=== PATIENT | male | born 1960 | race African-American/Black ===

== ENCOUNTER 2017-04-05 11:41 | Emergency (ER) | payer BC, OTHER ==
[2017-04-05 11:49] VITALS: BP 136/82; PULSE 68; TEMP 97.9; BMI 27.1
--- NOTE | 2017-04-05 12:00 | PDOC ---
History of Present Illness - General Chief Complaint: Pain Stated Complaint: BODYACHES Time Seen by Provider: 04/05/17 11:59 History Source: Patient Exam Limitations: No Limitations - History of Present Illness Initial Comments: 04/05/17 12:06 Pt is a 56 y/o male who presents with cough and urethral burning for two weeks. Pt. states his girlfriend was recently ill as well. Admits to cough, fatigue, urethral irritation. Admits to new sexual partners. Pt. is requesting HIV testing at this time. Denies fevers, chills, nausea, vomiting, diarrhea, frequency, urgency, dysuria, penile discharge. Timing/Duration: 1 week, constant Past History - Travel Traveled outside of the country in the last 30 days: No Close contact w/someone who was outside of country & ill: No - Past Medical History Allergies/Adverse Reactions: Allergies Allergy/AdvReac Type Severity Reaction Status Date / Time No Known Allergies Allergy Verified 04/05/17 12:14 Home Medications: Ambulatory Orders NK [No Known Home Medication] 04/05/17 Cardiac Disorders: Yes - Surgical History Cardiac Surgery: Yes (STENT LAD) - Family Disease History Family Disease History: Heart Disease: Father - Immunization History Immunization Up to Date: Yes - Psycho/Social/Smoking Cessation Hx Anxiety: No Suicidal Ideation: No Smoking History: Current every day smoker Have you smoked in the past 12 months: No Number of Cigarettes Smoked Daily: 3 Information on smoking cessation initiated: Yes 'Breaking Loose' booklet given: 04/05/17 Hx Alcohol Use: No Drug/Substance Use Hx: No Substance Use Type: None Hx Substance Use Treatment: No Review of Systems - Review of Systems Able to Perform ROS?: Yes Is the patient limited Ukrainian proficient: No Constitutional: Yes: Malaise. No: Chills, Fever HEENTM: No: Recent change in vision, Nose Congestion, Throat Pain Respiratory: Yes: Cough. No: Shortness of Breath : Yes: Symptoms Reported, Burning. No: Dysuria, Discharge, Frequency, Incontinence, Pain, Testicular Swelling *Physical Exam - Vital Signs Last Vital Signs Temp Pulse Resp BP Pulse Ox 97.9 F 68 18 136/82 99 04/05/17 11:48 04/05/17 11:48 04/05/17 11:48 04/05/17 11:48 04/05/17 11:48 - Physical Exam General Appearance: Yes: Nourished, Appropriately Dressed. No: Apparent Distress HEENT: positive: EOMI, JOSE, Normal ENT Inspection, Normal Voice, TMs Normal Neck: positive: Trachea midline, Supple. negative: Tender, Rigid, Lymphadenopathy (R), Lymphadenopathy (L) Respiratory/Chest: positive: Lungs Clear, Normal Breath Sounds. negative: Respiratory Distress, Accessory Muscle Use, Rhonchi, Stridor, Wheezing Cardiovascular: positive: Regular Rhythm, Regular Rate, S1, S2 (present) Gastrointestinal/Abdominal: positive: Normal Bowel Sounds, Flat, Soft. negative : Tender, Organomegaly Male Genitalia: positive: normal genitalia. negative: discharge, testicular tenderness, hematuria Integumentary: positive: Normal Color, Dry, Warm Neurologic: positive: bellows tester II-XII NML intact, Fully Oriented, Alert, Normal Mood/ Affect, Normal Response, Motor Strength 03/26 Medical Decision Making - Medical Decision Making 04/05/17 12:24 Impression: Possible viral syndrome, possible gonorrhea/chlamydia. Given symptoms will draw labs for all STD's and will treat prophylactically for chlamydia/gonorrhea. Pt. made aware that he needs to call for his results in three days. HIV testing drawn. Pt. will wait for results. 04/05/17 13:54 HIV testing is negative. Will discharge home at this time. Pt. may take over the counter cold medicine for his cough. *DC/Admit/Observation/Transfer Diagnosis at time of Disposition: Urethral pain Upper respiratory infection Qualifiers: URI type: unspecified URI Qualified Code(s): J06.9 - Acute upper respiratory infection, unspecified - Discharge Dispostion Disposition: HOME Condition at time of disposition: Stable Admit: No - Referrals Referrals: Carloz Gale MD [Primary Care Provider] - - Patient Instructions Printed Discharge Instructions: DI for Gonorrhea, DI for Chlamydia, DI for Viral Upper Respiratory Infection -- Adult Additional Instructions: Your HIV testing was negative today. You were also prophylactically treated for gonorrhea and chlamydia and do not need further treatment at this time. You may call back in three days for your results. You have symptoms of an upper respiratory infection. You may take Ibuprofen for your symptoms, up to 3,000 mgs a day. Take 600mg 4 times a day. You may also take over the counter cough medication for your symptoms. Stay hydrated and get plenty of rest. Return to the ED if you have chest pain, shortness of breathing, changes in your symptoms, or if your symptoms get worse.
[2017-04-05] MEDS ORDERED: IBUPROFEN 600 MG TABLET (FP) PO ONE ×2 (12:31→13:00)
[2017-04-05 12:51] LABS: URINE APPEARANCE CLEAR; URINE BILIRUBIN NEGATIVE (NEGATIVE); URINE BLOOD NEGATIVE (NEGATIVE); URINE COLOR STRAW; URINE GLUCOSE (UA) NEGATIVE (NEGATIVE); URINE KETONE NEGATIVE (NEGATIVE); URINE LEUK ESTERASE NEGATIVE (NEGATIVE); URINE NITRITE NEGATIVE (NEGATIVE); URINE PROTEIN NEGATIVE (NEGATIVE); URINE UROBILINOGEN NEGATIVE E.U./dl (0.2-1.0)
[2017-04-05] MEDS ORDERED: AZITHROMYCIN 1 GM PACKET PO ONE (12:52)
[2017-04-05] MEDS ORDERED: LIDOCAINE HCL 1%, 10 MG/ML (20ML VIAL) ONE (13:00)
[2017-04-05] MEDS ORDERED: AZITHROMYCIN 1 GM PACKET ONE (13:00)
[2017-04-05 13:24] LABS: HIV 1 & 2 AB NEGATIVE; HIV 1 AGp24 NEGATIVE
== END 2017-04-05 14:31 | disposition home or self-care (01) ==
LOC: JERFT 11:41
DX: N36.8 Other specified disorders of urethra (principal); J06.9 Acute upper respiratory infection, unspecified
CPT/HCPCS: 36415; 81003; 86593; 87389; 87491; 87591; 99281-25

== ENCOUNTER 2021-12-07 14:15 | Emergency (ER) | payer BC, OTHER ==
[2021-12-07 14:19] VITALS: BP 144/90; TEMP 98.2; BMI 29.1
[2021-12-07] MEDS ORDERED: ACETAMINOPHEN 500 MG TABLET (FP) PO ONE (16:57)
[2021-12-07] MEDS ORDERED: SODIUM CHLORIDE 0.9% 500 ML INFUS.BAG IV ONE (16:57)
[2021-12-07 17:01] LABS: BASO % 0.7 % (0-2.0); EOS % 0.2 % (0-4.5); HEMATOCRIT 52.7 % (35.4-49); HEMOGLOBIN 17.7 GM/dL (11.7-16.9); LYMPH % 23.3 % (8-40); MCHC 33.6 g/dl (32.0-35.9); MEAN CELL VOLUME 80.2 fl (80-96); MEAN PLT VOLUME 7.9 fl (7.5-11.1); MONO % 13.4 % (3.8-10.2); NEUT % 62.4 % (42.8-82.8); PLATELET COUNT 218 10^3/uL (134-434); RBC 6.57 M/mm3 (4.00-5.60); RDW 15.7 % (11.9-15.9); WHITE BLOOD COUNT 3.8 K/mm3 (4.0-10.0)
[2021-12-07 17:22] LABS: ALBUMIN 3.8 g/dl (3.4-5.0); BLOOD UREA NITROGEN 16.5 mg/dL (7-18)
[2021-12-07 17:25] LABS: CREATININE 0.9 mg/dL (0.55-1.3)
[2021-12-07 17:27] LABS: BILIRUBIN,TOTAL 0.5 mg/dL (0.2-1); TOT PROT 7.3 g/dl (6.4-8.2)
[2021-12-07 18:27] VITALS: PULSE 90
[2021-12-08] MEDS ORDERED: AZITHROMYCIN 500 MG TABLET PO ONE (17:24)
== END 2021-12-07 18:27 | disposition home or self-care (01) ==
LOC: JER 14:15
DX: U07.1 COVID-19 (principal)
CPT/HCPCS: 36415; 71046-TC-FY; 80053; 85025; 99284-25

== ENCOUNTER 2021-12-12 00:45 | Inpatient (IN) | payer OTHER ==
[2021-12-12 00:59] VITALS: BMI 29.1
[2021-12-12 02:14] LABS: ACTIVATED PTT 19.2 SECONDS (25.2-36.5); CALCIUM 8.6 mg/dL (8.5-10.1); CHLORIDE 106 mmol/L (98-107); INR 0.93 (0.83-1.09); PROTHROMBIN TIME (PATIENT) 10.7 SEC (9.7-13.0); SODIUM 138 mmol/L (136-145)
[2021-12-12 02:15] LABS: ALBUMIN 3.2 g/dl (3.4-5.0); ANION GAP 9 MMOL/L (8-16); BLOOD UREA NITROGEN 14.5 mg/dL (7-18); CO2 23 mmol/L (21-32); GLUCOSE,RANDOM 134 mg/dL (74-106); MAGNESIUM 2.5 mg/dL (1.8-2.4)
[2021-12-12 02:18] LABS: CREATININE 0.9 mg/dL (0.55-1.3); SGOT/AST 69 U/L (15-37); SGPT/ALT 68 U/L (13-61)
[2021-12-12 02:19] LABS: BILIRUBIN,TOTAL 0.5 mg/dL (0.2-1)
[2021-12-12 02:20] LABS: TOT PROT 6.6 g/dl (6.4-8.2)
[2021-12-12 02:21] LABS: ALK PHOS 77 U/L (45-117)
[2021-12-12 02:24] LABS: N-TERMINAL BNP 97.5 pg/ml (5-125)
[2021-12-12 02:44] LABS: BASO % 0.3 % (0-2.0); HEMATOCRIT 44.3 % (35.4-49); LYMPH % 11.4 % (8-40); MCH 27.1 pg (25.7-33.7); MCHC 33.9 g/dl (32.0-35.9); MEAN CELL VOLUME 80.1 fl (80-96); MEAN PLT VOLUME 7.1 fl (7.5-11.1); MONO % 14.4 % (3.8-10.2); NEUT % 73.9 % (42.8-82.8); PLATELET COUNT 359 10^3/uL (134-434); RBC 5.53 M/mm3 (4.00-5.60); RDW 15.3 % (11.9-15.9)
[2021-12-12 03:22] LABS: LDH 453 U/L (87-246)
[2021-12-12 03:45] LABS: VENOUS BASE EXCESS -2.2 mmol/L (-2-2); VENOUS PCO2 30.8 mmHg (38-52); VENOUS PH 7.444 (7.310-7.410)
[2021-12-12] MEDS ORDERED: SODIUM CHLORIDE 1,000 ML IV SCH ×2 (06:30→12:54)
[2021-12-12 08:45] LABS: CHOLESTEROL 174 mg/dL (50-200); TRIGLYCERIDES 139 mg/dL (0-150)
[2021-12-12 08:46] LABS: LDL CHOLESTEROL (ONLY SJRH) 109 mg/dL (5-100)
[2021-12-12 08:47] LABS: HDL CHOLESTEROL 36 mg/dL (40-60)
[2021-12-12] MEDS ORDERED: ENOXAPARIN NA (PORCINE) 40 MG/0.4 ML DISP.SYRIN SQ SCH (10:00)
[2021-12-12] MEDS ORDERED: DEXAMETHASONE SOD PHOSPHATE 10 MG/1 ML VIAL IVPUSH SCH (10:00)
[2021-12-12] MEDS ORDERED: DEXAMETHASONE SOD PHOSPHATE 10 MG/1 ML VIAL ONE (11:25)
[2021-12-12] MEDS ORDERED: HEPARIN NA (PORCINE) 5,000 UNITS/ML 1ML VIAL ONE ×3 (11:25→20:59)
[2021-12-12 11:51] LABS: CHLORIDE 107 mmol/L (98-107); SODIUM 138 mmol/L (136-145)
[2021-12-12] MEDS: HEPARIN NA (PORCINE) 5,000 UNITS/ML 1ML VIAL SQ SCH ×3 (11:51→21:01)
[2021-12-12 11:52] LABS: ANION GAP 8 MMOL/L (8-16); CO2 23 mmol/L (21-32)
[2021-12-12 11:53] LABS: BLOOD UREA NITROGEN 14.6 mg/dL (7-18); GLUCOSE,RANDOM 135 mg/dL (74-106)
[2021-12-12 11:56] LABS: CREATININE 0.9 mg/dL (0.55-1.3)
[2021-12-12 11:56] LABS: PH,URINE 6.5 (5.0-8.0); URINE APPEARANCE CLEAR; URINE BILIRUBIN NEGATIVE (NEGATIVE); URINE COLOR YELLOW; URINE GLUCOSE (UA) NEGATIVE (NEGATIVE); URINE KETONE NEGATIVE (NEGATIVE); URINE LEUK ESTERASE NEGATIVE (NEGATIVE); URINE NITRITE NEGATIVE (NEGATIVE); URINE PROTEIN NEGATIVE (NEGATIVE); URINE UROBILINOGEN 0.2 mg/dL (0.2-1.0)
[2021-12-12] MEDS ORDERED: ACETAMINOPHEN 500 MG TABLET (FP) PO ONE (13:40)
[2021-12-12] MEDS ORDERED: ACETAMINOPHEN 500 MG TABLET (FP) PO PRN ×3 (13:41→14:19)
[2021-12-12] MEDS ORDERED: MELATONIN 5 MG TABLETS PO PRN (13:44)
[2021-12-12] MEDS ORDERED: ASPIRIN 81 MG CHEWABLE TABLETS PO SCH (15:30)
[2021-12-12 16:38] VITALS: TEMP 97.9
[2021-12-12] MEDS ORDERED: ASPIRIN 81 MG CHEWABLE TABLETS ONE (17:23)
[2021-12-12] MEDS: guaiFENesin 600 MG TABLET.ER (FP) PO SCH ×2 (18:59→21:01)
[2021-12-12] MEDS ORDERED: ATORVASTATIN CA 40 MG TABLET (FP) ONE (20:59)
[2021-12-12 21:10] VITALS: PULSE 79
[2021-12-12 21:11] VITALS: BP 128/81
[2021-12-12] MEDS ORDERED: ATORVASTATIN CA 40 MG TABLET (FP) PO SCH (22:00)
[2021-12-13 07:30] LABS: HEMATOCRIT 44.5 % (35.4-49); HEMOGLOBIN 14.7 GM/dL (11.7-16.9); MCH 26.7 pg (25.7-33.7); MCHC 32.9 g/dl (32.0-35.9); MEAN CELL VOLUME 81.1 fl (80-96); MEAN PLT VOLUME 6.9 fl (7.5-11.1); PLATELET COUNT 380 10^3/uL (134-434); RBC 5.48 M/mm3 (4.00-5.60); RDW 15.8 % (11.9-15.9)
[2021-12-13 07:54] LABS: CALCIUM 8.2 mg/dL (8.5-10.1)
[2021-12-13 07:55] LABS: ALBUMIN 2.8 g/dl (3.4-5.0); BLOOD UREA NITROGEN 15.4 mg/dL (7-18); MAGNESIUM 2.3 mg/dL (1.8-2.4)
[2021-12-13 07:58] LABS: CREATININE 0.8 mg/dL (0.55-1.3); PHOSPHOROUS 2.4 mg/dL (2.5-4.9)
[2021-12-13 07:59] LABS: BILIRUBIN,TOTAL 0.4 mg/dL (0.2-1); TOT PROT 5.8 g/dl (6.4-8.2)
== END 2021-12-12 23:50 | disposition left against medical advice (07) | DRG 137 ==
LOC: JER 00:45 → JERBED 04:46
PROVIDERS: ADMIT Hospitalist
DX: U07.1 COVID-19 (principal); J12.82 Pneumonia due to coronavirus disease 2019; M62.82 Rhabdomyolysis; I10 Essential (primary) hypertension; I25.10 Atherosclerotic heart disease of native coronary artery without angina pectoris; E78.5 Hyperlipidemia, unspecified; F17.210 Nicotine dependence, cigarettes, uncomplicated; R19.7 Diarrhea, unspecified; R07.89 Other chest pain; Z98.61 Coronary angioplasty status
CPT/HCPCS: 36415; 71045-TC-FY; 80048; 80053; 80061; 81003; 82550; 82553; 82728; 82803; 83036; 83615; 83735; 83880; 84100; 84443; 84484; 85025; 85027; 85379; 85610; 85730; 86140; 93005; 93010; 99285-25; C9803; J1100; J1644; U0003; U0005

== ENCOUNTER 2021-12-13 03:02 | Inpatient (IN) | payer OTHER ==
[2021-12-13 03:36] VITALS: BMI 29.8
[2021-12-13 04:20] LABS: VENOUS BASE EXCESS -0.6 mmol/L (-2-2); VENOUS PCO2 37.7 mmHg (38-52); VENOUS PH 7.415 (7.310-7.410)
[2021-12-13 05:10] LABS: BASO % 0.1 % (0-2.0); HEMATOCRIT 45.4 % (35.4-49); HEMOGLOBIN 14.6 GM/dL (11.7-16.9); LYMPH % 15.8 % (8-40); MCH 26.3 pg (25.7-33.7); MCHC 32.2 g/dl (32.0-35.9); MEAN CELL VOLUME 81.4 fl (80-96); MEAN PLT VOLUME 7.1 fl (7.5-11.1); MONO % 23.8 % (3.8-10.2); NEUT % 60.3 % (42.8-82.8); PLATELET COUNT 392 10^3/uL (134-434); RBC 5.57 M/mm3 (4.00-5.60); RDW 15.9 % (11.9-15.9); WHITE BLOOD COUNT 5.8 K/mm3 (4.0-10.0)
[2021-12-13 05:18] LABS: COCAINE, UR NEGATIVE (NEGATIVE); OPIATES, URI NEGATIVE (NEGATIVE); URINE BARBITURATES NEGATIVE (NEGATIVE)
[2021-12-13 05:19] LABS: PHENCYCLIDINE,URINE NEGATIVE (NEGATIVE)
[2021-12-13 05:26] LABS: METHADONE, UR NEGATIVE (NEGATIVE); URINE AMPHETAMINES NEGATIVE (NEGATIVE); URINE BENZODIAZEPINES NEGATIVE (NEGATIVE)
[2021-12-13 06:54] LABS: CHLORIDE 108 mmol/L (98-107); SODIUM 138 mmol/L (136-145)
[2021-12-13 06:56] LABS: CALCIUM 8.5 mg/dL (8.5-10.1)
[2021-12-13 06:57] LABS: ANION GAP 8 MMOL/L (8-16); BLOOD UREA NITROGEN 16.4 mg/dL (7-18); CO2 22 mmol/L (21-32); GLUCOSE,RANDOM 119 mg/dL (74-106)
[2021-12-13 06:59] LABS: SGPT/ALT 60 U/L (13-61)
[2021-12-13 07:00] LABS: CREATININE 0.8 mg/dL (0.55-1.3); SGOT/AST 44 U/L (15-37)
[2021-12-13 07:01] LABS: BILIRUBIN,TOTAL 0.4 mg/dL (0.2-1)
[2021-12-13 07:02] LABS: ALK PHOS 73 U/L (45-117)
[2021-12-13] MEDS ORDERED: LACTATED RINGERS SOLUTION 1,000 ML/1,000 ML INFUS.BAG IV SCH (08:00)
[2021-12-13] MEDS ORDERED: ASPIRIN COATED 81 MG TABLET.EC ONE (09:10)
[2021-12-13] MEDS ORDERED: HEPARIN NA (PORCINE) 5,000 UNITS/ML 1ML VIAL ONE (09:10)
[2021-12-13] MEDS ORDERED: DEXAMETHASONE SOD PHOSPHATE 10 MG/1 ML VIAL ONE (09:10)
[2021-12-13] MEDS ORDERED: ASPIRIN COATED 81 MG TABLET.EC PO SCH (10:00)
[2021-12-13] MEDS ORDERED: DEXAMETHASONE SOD PHOSPHATE 10 MG/1 ML VIAL IVPUSH SCH (10:00)
[2021-12-13] MEDS ORDERED: HEPARIN NA (PORCINE) 5,000 UNITS/ML 1ML VIAL SQ SCH (10:00)
[2021-12-13] MEDS ORDERED: guaiFENesin 600 MG TABLET.ER (FP) PO SCH (10:00)
[2021-12-13 10:11] LABS: ANISOCYTOSIS 0; HELMET CELLS 0; HOWELL-JOLLY BODIES 0; MACROCYTOSIS 0; OVALOCYTE 0; PLATELET ESTIMATE NORMAL; ROULEAU 0; SICKELED CELLS 0; TARGET CELLS 0; TEAR DROP CELLS 0; TOXIC GRANULATION 0
[2021-12-13 11:34] VITALS: BP 141/92; PULSE 74; TEMP 98.2
[2021-12-13] MEDS ORDERED: ATORVASTATIN CA 40 MG TABLET (FP) PO SCH (22:00)
== END 2021-12-13 12:56 | disposition left against medical advice (07) | DRG 137 ==
LOC: JER 03:02 → JERBED 05:21
DX: U07.1 COVID-19 (principal); J12.82 Pneumonia due to coronavirus disease 2019; M62.82 Rhabdomyolysis; I10 Essential (primary) hypertension; E78.5 Hyperlipidemia, unspecified; I25.10 Atherosclerotic heart disease of native coronary artery without angina pectoris; Z53.29 Procedure and treatment not carried out because of patient's decision for other reasons
CPT/HCPCS: 36415; 71275-TC; 80053; 80307; 82550; 82553; 82803; 84484; 85025; 85379; 93005; 93010; 99285-25; C9803; J1100; J1644; Q9967; U0003; U0005

== ENCOUNTER 2021-12-17 16:40 | Emergency (ER) | payer OTHER ==
[2021-12-17 17:28] VITALS: BP 156/97; PULSE 81; TEMP 97.4; BMI 28.5
[2021-12-17] MEDS ORDERED: FAMOTIDINE 20 MG/50 ML IVPB 20 MG/50 ML MG IVPB ONE ×2 (18:00→18:14)
[2021-12-17] MEDS ORDERED: LACTATED RINGERS SOLUTION 1000 ML INFUS.BAG IV ONE (18:00)
[2021-12-17] MEDS ORDERED: ONDANSETRON 4 MG/2 ML VIAL IVPUSH ONE (18:00)
[2021-12-17] MEDS ORDERED: ACETAMINOPHEN 1000 MG/100 ML BAG IVPB ONE (18:00)
[2021-12-17] MEDS ORDERED: ACETAMINOPHEN INJECTION 100 ML IVPB ONE (18:14)
[2021-12-17] MEDS ORDERED: ONDANSETRON 4 MG/2 ML VIAL ONE (18:15)
[2021-12-17 19:41] LABS: BASO % 0.4 % (0-2.0); EOS % 1.6 % (0-4.5); HEMATOCRIT 45.7 % (35.4-49); HEMOGLOBIN 15.3 GM/dL (11.7-16.9); LYMPH % 24.5 % (8-40); MCH 26.9 pg (25.7-33.7); MCHC 33.5 g/dl (32.0-35.9); MEAN CELL VOLUME 80.1 fl (80-96); MEAN PLT VOLUME 7.1 fl (7.5-11.1); MONO % 13.1 % (3.8-10.2); NEUT % 60.4 % (42.8-82.8); PLATELET COUNT 429 10^3/uL (134-434); RDW 15.3 % (11.9-15.9); WHITE BLOOD COUNT 6.6 K/mm3 (4.0-10.0)
[2021-12-17 19:59] LABS: CHLORIDE 105 mmol/L (98-107); SODIUM 138 mmol/L (136-145)
[2021-12-17 20:03] LABS: ALBUMIN 3.1 g/dl (3.4-5.0); ANION GAP 8 MMOL/L (8-16); BLOOD UREA NITROGEN 10.3 mg/dL (7-18); CALCIUM 8.9 mg/dL (8.5-10.1); CO2 24 mmol/L (21-32); GLUCOSE,RANDOM 105 mg/dL (74-106); LIPASE 161 U/L (73-393); MAGNESIUM 2.3 mg/dL (1.8-2.4)
[2021-12-17 20:05] LABS: SGOT/AST 32 U/L (15-37); SGPT/ALT 86 U/L (13-61)
[2021-12-17 20:06] LABS: BILIRUBIN,TOTAL 0.6 mg/dL (0.2-1)
[2021-12-17 20:07] LABS: TOT PROT 6.4 g/dl (6.4-8.2)
[2021-12-17 20:08] LABS: ALK PHOS 75 U/L (45-117)
[2021-12-17 20:08] LABS: PH,URINE 7.5 (5.0-8.0); URINE APPEARANCE CLEAR; URINE BILIRUBIN NEGATIVE (NEGATIVE); URINE COLOR YELLOW; URINE GLUCOSE (UA) NEGATIVE (NEGATIVE); URINE KETONE NEGATIVE (NEGATIVE); URINE LEUK ESTERASE NEGATIVE (NEGATIVE); URINE NITRITE NEGATIVE (NEGATIVE); URINE PROTEIN NEGATIVE (NEGATIVE); URINE UROBILINOGEN 0.2 mg/dL (0.2-1.0)
== END 2021-12-17 22:30 | disposition home or self-care (01) ==
LOC: JER 16:40
PROC: 3E0333Z Introduction of Anti-inflammatory into Peripheral Vein, Percutaneous Approach (ICD-10-PCS; principal; 2021-12-17)
PROC: 3E033GC Introduction of Other Therapeutic Substance into Peripheral Vein, Percutaneous Approach (ICD-10-PCS; 2021-12-17)
PROC: 3E033GC Introduction of Other Therapeutic Substance into Peripheral Vein, Percutaneous Approach (ICD-10-PCS; 2021-12-17)
DX: R11.10 Vomiting, unspecified (principal)
CPT/HCPCS: 36415; 71045-TC-FY; 74177-TC; 80053; 81003; 82272; 82550; 82553; 83690; 83735; 84484; 85025; 93005; 93010; 99285-25; C9803; J0131; Q9967; U0003; U0005

== ENCOUNTER 2022-10-15 15:10 | Emergency (ER) | payer OTHER ==
[2022-10-15 15:18] VITALS: BP 145/98; PULSE 96; RESP 18; TEMP 98.7; BMI 30.5
[2022-10-15 16:28] LABS: THROAT:GRP A STREP NOT DETECTED (NOTDETECTED)
[2022-10-15] MEDS ORDERED: DEXAMETHASONE SOD PHOSPHATE 10 MG/1 ML VIAL IM ONE (16:38)
[2022-10-15] MEDS ORDERED: KETOROLAC TROMETHAMINE 30 MG/1 ML VIAL IM ONE (16:39)
[2022-10-15] MEDS ORDERED: DEXAMETHASONE SOD PHOSPHATE 4 MG/1 ML VIAL ONE (16:42)
[2022-10-15] MEDS ORDERED: KETOROLAC TROMETHAMINE 30 MG/1 ML VIAL ONE (16:42)
[2022-10-15] MEDS ORDERED: AZITHROMYCIN 250 MG TABLET PO ONE (18:07)
[2022-10-15] MEDS ORDERED: AZITHROMYCIN 250 MG TABLET ONE (18:34)
== END 2022-10-15 18:56 | disposition home or self-care (01) ==
LOC: JER 15:10
PROC: 3E0233Z Introduction of Anti-inflammatory into Muscle, Percutaneous Approach (ICD-10-PCS; principal; 2022-10-15)
PROC: 3E023NZ Introduction of Analgesics, Hypnotics, Sedatives into Muscle, Percutaneous Approach (ICD-10-PCS; 2022-10-15)
DX: J02.9 Acute pharyngitis, unspecified (principal); J06.9 Acute upper respiratory infection, unspecified
CPT/HCPCS: 0241U-QW; 71046-TC-FY; 87651; 93005; 93010; 99284-25; J1100

== ENCOUNTER 2022-10-19 22:16 | Emergency (ER) | payer OTHER ==
[2022-10-19 22:36] VITALS: BP 144/84; PULSE 79; RESP 20; TEMP 98.6; BMI 31.1
[2022-10-20 01:38] LABS: BASO % 1.2 % (0-2.0); EOS % 3.1 % (0-4.5); HEMATOCRIT 47.6 % (35.4-49); HEMOGLOBIN 15.6 GM/dL (11.7-16.9); LYMPH % 25.8 % (8-40); MCH 27.3 pg (25.7-33.7); MCHC 32.7 g/dl (32.0-35.9); MEAN CELL VOLUME 83.5 fl (80-96); MEAN PLT VOLUME 7.6 fl (7.5-11.1); MONO % 9.2 % (3.8-10.2); NEUT % 60.7 % (42.8-82.8); PLATELET COUNT 310 10^3/uL (134-434); RDW 14.1 % (11.9-15.9); WHITE BLOOD COUNT 11.3 K/mm3 (4.0-10.0)
[2022-10-20 02:06] LABS: CALCIUM 9.1 mg/dL (8.5-10.1)
[2022-10-20 02:07] LABS: ALBUMIN 3.4 g/dl (3.4-5.0); BLOOD UREA NITROGEN 16.3 mg/dL (7-18)
[2022-10-20 02:10] LABS: CREATININE 1.1 mg/dL (0.55-1.3)
[2022-10-20 02:11] LABS: BILIRUBIN,TOTAL 0.3 mg/dL (0.2-1); TOT PROT 6.7 g/dl (6.4-8.2)
== END 2022-10-20 05:15 | disposition left against medical advice (07) ==
LOC: JER 22:16
DX: R05.1 Acute cough (principal); R61 Generalized hyperhidrosis
CPT/HCPCS: 0241U-QW; 36415; 71046-TC-FY; 71250-TC; 80053; 85025; 93005; 93010; 99285-25

== ENCOUNTER 2022-11-28 14:59 | Emergency (ER) | payer OTHER ==
[2022-11-28 15:32] VITALS: BP 141/88; PULSE 84; RESP 19; TEMP 98.9; BMI 30.5
[2022-11-28] MEDS ORDERED: DEXAMETHASONE SOD PHOSPHATE 10 MG/1 ML VIAL PO ONE (17:24)
[2022-11-28] MEDS ORDERED: ACETAMINOPHEN 500 MG TABLET (FP) PO ONE (17:24)
[2022-11-28] MEDS ORDERED: DEXAMETHASONE SOD PHOSPHATE 10 MG/1 ML VIAL ONE (17:33)
[2022-11-28] MEDS ORDERED: ACETAMINOPHEN 500 MG TABLET (FP) ONE (17:33)
== END 2022-11-28 17:30 | disposition home or self-care (01) ==
LOC: JER 14:59
DX: U07.1 COVID-19 (principal)
CPT/HCPCS: 99283-25; J1100

== ENCOUNTER 2023-02-12 17:30 | Emergency (ER) | payer OTHER ==
[2023-02-12 17:36] VITALS: TEMP 98.3; BMI 30.5
[2023-02-12] MEDS ORDERED: KETOROLAC TROMETHAMINE 30 MG/1 ML VIAL IVPUSH ONE (18:09)
[2023-02-12] MEDS ORDERED: SODIUM CHLORIDE 1,000 ML IV STA (18:12)
[2023-02-12] MEDS ORDERED: KETOROLAC TROMETHAMINE 30 MG/1 ML VIAL ONE (18:23)
[2023-02-12] MEDS ORDERED: ONDANSETRON 4 MG/2 ML VIAL IVPB ONE (18:29)
[2023-02-12 18:59] LABS: EOS % 3.4 % (0-4.5); HEMATOCRIT 44.3 % (35.4-49); LYMPH % 25.4 % (8-40); MCH 27.6 pg (25.7-33.7); MCHC 33.8 g/dl (32.0-35.9); MEAN CELL VOLUME 81.6 fl (80-96); MONO % 9.2 % (3.8-10.2); PLATELET COUNT 244 10^3/uL (134-434); RBC 5.43 M/mm3 (4.00-5.60); WHITE BLOOD COUNT 7.3 K/mm3 (4.0-10.0)
[2023-02-12 19:21] LABS: ALBUMIN 3.8 g/dl (3.4-5.0); BLOOD UREA NITROGEN 13.8 mg/dL (7-18)
[2023-02-12 19:24] LABS: CREATININE 1.2 mg/dL (0.55-1.3)
[2023-02-12 19:26] LABS: BILIRUBIN,TOTAL 0.4 mg/dL (0.2-1); TOT PROT 6.6 g/dl (6.4-8.2)
[2023-02-12] MEDS ORDERED: ONDANSETRON 4 MG/2 ML VIAL ONE (20:08)
[2023-02-12 20:51] LABS: EPI CELLS 0 /uL (0-25.1); HYALINE CASTS 0 /uL (0-3.1); URINE APPEARANCE CLEAR; URINE BACTERIA 0 /uL (0-1359); URINE BILIRUBIN NEGATIVE (NEGATIVE); URINE COLOR YELLOW; URINE GLUCOSE (UA) NEGATIVE (NEGATIVE); URINE KETONE NEGATIVE (NEGATIVE); URINE LEUK ESTERASE NEGATIVE (NEGATIVE); URINE NITRITE NEGATIVE (NEGATIVE); URINE PROTEIN NEGATIVE (NEGATIVE); URINE RBC 77 /uL (0-23.9); URINE UROBILINOGEN 0.2 mg/dL (0.2-1.0); URINE WBC 1 /uL (0-25.8)
[2023-02-12] MEDS ORDERED: SULFAMETHOXAZOLE/TRIMETHOPRIM 800MG/160MG D.S. TABLET PO ONE (21:06)
[2023-02-12] MEDS ORDERED: SULFAMETHOXAZOLE/TRIMETHOPRIM 800MG/160MG D.S. TABLET ONE (21:14)
[2023-02-12 21:21] VITALS: BP 153/93; PULSE 60; RESP 16
== END 2023-02-12 21:24 | disposition left against medical advice (07) ==
LOC: JER 17:30
PROC: 3E033GC Introduction of Other Therapeutic Substance into Peripheral Vein, Percutaneous Approach (ICD-10-PCS; principal; 2023-02-12)
DX: N20.0 Calculus of kidney (principal)
CPT/HCPCS: 36415; 74176-TC; 80053; 81003; 83690; 85025; 87086; 93005; 93010; 99285-25

== ENCOUNTER 2024-09-26 03:17 | Emergency (ER) | payer OTHER ==
[2024-09-26 03:23] VITALS: BP 141/97; PULSE 72; RESP 24; TEMP 98.4; BMI 29.8
[2024-09-26] MEDS: ALBUTEROL SO4 2.5/IPRATROPIUM 0.5 INH SOL 3 ML VIAL.NEB. NEB SCH (04:45)
[2024-09-26] MEDS ORDERED: ALBUTEROL SO4 2.5/IPRATROPIUM 0.5 INH SOL 3 ML VIAL.NEB. NEB ONE (04:46)
[2024-09-26] MEDS ORDERED: METOCLOPRAMIDE HCL 10 MG TABLET (FP) PO ONE (04:47)
[2024-09-26] MEDS ORDERED: ACETAMINOPHEN 325 MG TABLET (FP) ONE (04:47)
[2024-09-26] MEDS: ACETAMINOPHEN 500 MG TABLET (FP) PO ONE (04:58)
[2024-09-26] MEDS: METOCLOPRAMIDE HCL 10 MG TABLET (FP) PO ONE (04:58)
== END 2024-09-26 06:20 | disposition home or self-care (01) ==
LOC: JER 03:17
DX: J18.9 Pneumonia, unspecified organism (principal); J40 Bronchitis, not specified as acute or chronic; R05.9 Cough, unspecified; J02.9 Acute pharyngitis, unspecified; R50.9 Fever, unspecified; R09.81 Nasal congestion; R51.9 Headache, unspecified; Z20.822 Contact with and (suspected) exposure to COVID-19
CPT/HCPCS: 0241U-QW; 71046-TC-FY; 99284-25